=== PATIENT | male | born 1980 | race African-American/Black ===

== ENCOUNTER 2016-07-31 11:24 | Observation (INO) | payer OTHER ==
[2016-07-30 13:02] VITALS: Ht 177.8 cm; Wt 91.0 kg
[2016-07-31] VITALS (19 sets, daily range): BP systolic 94–143; BP diastolic 37–81; PULSE 61–102; RESP 13–20
[~2016-07-31] VITALS: Ht 177.8 cm; Wt 91.0 kg
[2016-07-31] MEDS ORDERED: HYD25 PO (12:44)
[2016-07-31] MEDS ORDERED: LISI40TA9 PO (12:44)
--- NOTE | 2016-07-31 13:45 | HPN ---
Date/Time of Note Date/Time of Note DATE: 07/31/16 TIME: 13:44 Interval H&P Admission Note Pt. seen H&P reviewed: No system changes MISTY DEMARCO M.D. Jul 31, 2016 13:45
[2016-07-31] MEDS ORDERED: TRIAMCINOLONE ACET 40 MG/ML INJ ONE (13:52)
[2016-07-31] MEDS ORDERED: LIDOCAINE 1%/EPI 30 ML INJ ONE (13:52)
[2016-07-31] MEDS ORDERED: BUPIVACAINE 0.25%/EPI (SDV) 30 ML INJ ONE (13:52)
[2016-07-31] MEDS ORDERED: COCAINE 4% 4 ML TOP ONE (13:53)
[2016-07-31] MEDS ORDERED: CEFAZOLIN 1 GM INJ ONE (14:04)
[2016-07-31] MEDS ORDERED: EPHEDrine SULFATE 50 MG/5 ML SYG ONE (14:04)
[2016-07-31] MEDS ORDERED: PROPOFOL 20 ML ONE (14:04)
[2016-07-31] MEDS ORDERED: ROCURONIUM 50 MG INJ ONE (14:04)
[2016-07-31] MEDS ORDERED: DEXAMETHASONE 4 MG/ML 1 ML INJ ONE ×2 (14:04→14:29)
[2016-07-31] MEDS ORDERED: ONDANSETRON 4 MG INJ ONE (14:05)
[2016-07-31] MEDS ORDERED: hydrALAzine 20 MG INJ IV PRN (15:00)
[2016-07-31] MEDS ORDERED: HYDROmorphONE (0.2 MG/ML) 10ML SYG IV PRN ×2 (15:00)
[2016-07-31] MEDS ORDERED: EPHEDrine SULFATE 50 MG/5 ML SYG IV PRN (15:00)
[2016-07-31] MEDS ORDERED: MIDAZOLAM 1 MG/ML 2 ML INJ IV PRN (15:00)
[2016-07-31] MEDS ORDERED: MEPERIDINE 25 MG INJ IV PRN (15:00)
[2016-07-31] MEDS ORDERED: ONDANSETRON 4 MG INJ IV PRN (15:00)
[2016-07-31] MEDS ORDERED: DIPHENHYDRAMINE 50 MG INJ IV PRN (15:00)
[2016-07-31] MEDS ORDERED: GLYCOPYRROLATE 0.4 MG INJ ONE (15:17)
[2016-07-31] MEDS ORDERED: NEOSTIGMINE 3 MG/3 ML SYRINGE ONE (15:17)
[2016-07-31] MEDS ORDERED: BACITRACIN/POLYMYXIN 28.35 GM OINT TOP ONE (15:27)
[2016-07-31] MEDS: HYDROmorphONE (0.2 MG/ML) 10ML SYG IV PRN ×2 (16:41→16:47)
[2016-07-31] MEDS ORDERED: VITAMIN A & D 5 GM OINT PACKET TOP ONE (17:57)
[2016-07-31] MEDS: IBUPROFEN 800 MG TAB PO PRN ×2 (17:59→21:32)
--- NOTE | 2016-07-31 20:38 | OPR ---
DATE OF OPERATION: 07/31/2016 SURGEON: Amari Poole MD PREOPERATIVE DIAGNOSES: 1. Obstructive sleep apnea. 2. Septal deviation. 3. Nasal turbinate tissue hypertrophy. 4. Tonsil tissue hypertrophy. 5. Chronic nasal obstruction. POSTOPERATIVE DIAGNOSES: 1. Obstructive sleep apnea. 2. Septal deviation. 3. Nasal turbinate tissue hypertrophy. 4. Tonsil tissue hypertrophy. 5. Chronic nasal obstruction. SURGICAL PROCEDURES PERFORMED: 1. Uvulopalatopharyngoplasty procedure. 2. Septoplasty procedure using submucosal resection technique. 3. Bilateral laser turbinoplasty procedure using a 532 nanometer laser using a submucosal resection technique. ESTIMATED BLOOD LOSS: Approximately 100 mL. COMPLICATIONS: No complications. SPECIMENS SENT TO LABORATORY: The septal cartilage and bone along with left and right tonsils with bilateral portions of the pharynx and uvula. There are also portions of the palate sent with the uv jovanny. ANESTHETIC USED: General anesthesia with orotracheal tube intubation. The patient also received 10 mL of 1% lidocaine with epinephrine 1:100,000, also Marcaine 0.25% with epinephrine 1:200,000 used approximately 17 mL. The patient also received topical cocaine 4% using 4 mL as well as 40 mg of Ke nalog applied to the base of the tongue using 1 mL. The patient was also given Decadron and Ancef b efore the case was begun. FINDINGS DURING PROCEDURE: Right anterior nasal septal deviation with bilateral turbinate tissue hy pertrophy. There are also papillomatous degenerative mucosal changes of the nasal cavity. The ana ent also found to have elongated uvula and enlarged tonsils bilaterally. No signs of malignancies, tumors present, bifid uvula, or a submucous cleft. INDICATIONS: Mr. 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 The patient has also been found to have nasal septal gianluca ation with turbinate tissue hypertrophy. The patient is currently scheduled for today's procedure, which will include a septoplasty procedure with bilateral laser turbinoplasty procedure. The patien t will also undergo a uvulopalatopharyngoplasty procedure with bilateral tonsillectomy procedure. T he risks, benefits, and alternatives have been explained thoroughly to Mr. Cleary. They include inf ection, bleeding, scar formation, possible damage to the lingual nerve which could result in tongue numbness. He also understands the risk of possible septal perforation as well as possible failure o f procedure. The patient also understands the risks of general and local anesthetic agents that lana l be used during this procedure and the possible risks of dental or gingival lacerations that can oc cur during the procedure. He signed the consent after his questions were answered. POSTOPERATIVE CONDITION: This patient left the operating room in good and satisfactory condition an d will be admitted for a 23-hour hold. PROCEDURE IN DETAIL: The patient was taken to the operating room, placed on the surgical table in s upine position, made comfortable by the anesthesiologist, Dr. Newton. The patient had EKG, saturati on monitoring, and blood pressure cuff applied. The patient was then given a mask inhalation agent and placed to sleep gently. The patient had a previously started IV in the preinduction area, which was infusing well. The patient was then successfully orotracheally intubated with orotracheal cuff ed tube without any complications. At this point, the tube was taped to the lower lip in the midlin e and the eyes were taped for protection. A brief time-out with patient identification and procedur e was entertained, and all were in agreement. At this point, wet towels were placed around the eyes and the split sheet in preparation for the procedure. The nose was then prepped with injections of 1% lidocaine with epinephrine 1:100,000 using 10 mL using a 25-gauge 1-1/2 inch needle. These inje ctions were given to the septum and inferior turbinates bilaterally. There was also injection on th e floor of the nose and in the nasal spine area. At this point, all personnel in the operating room were asked to place safety goggles on for their protection as the KTP 532 nm laser was then made re carlos at 8 call continuous power. Using a straight handpiece and a foot pedal, the laser was activat ed after it was placed in the submucosal space of the left inferior turbinate. In a posterior direc tion, the inferior turbinate was reduced in the submucosal space and then outfractured towards the m edial wall of the maxillary sinus to give greater patency of the nasal cavity. The right side was d one in a similar fashion and it too was reduced in size. After adequate reduction of the inferior t urbinate, the procedure was terminated. At this point, a septoplasty procedure was performed by mack ing a hemitransfixion incision in the interseptal margin with a #15 Bard-Shlomo stainless steel blad e. This incision was carried down through the mucosal lining down to the underlying perichondrium o f the nasal septum. A Isabela elevator was then used to elevate a mucoperichondrial flap on the left side of the nose with care not to tear or damage the flap. The hemitransfixion incision was then c ompleted with the #15 Bard-Shlomo sharp stainless steel blade to the right side. The Isabela elevato r was then advanced to the right side and elevated a mucoperichondrial flap as well. The deviated n kalyn septal cartilage was then removed with ____ with Jake forceps. After complete removal, th e septum was noted to swing back towards the midline. At this point, the hemitransfixion incision w as closed with a 4-0 Vicryl suture in simple interrupted fashion. Plication sutures were then place d to keep the flap in midline position and to prevent hematoma formation using a 4-0 Vicryl suture. This ended the septoplasty portion of the procedure as the table was then turned to the left, appro ximately 90 degrees before being relocked. At this point, the head of the table was extended to all ow access into the oral cavity. A McIvor mouth gag using a 4 right blade was then gently inserted i nto the oral cavity with care not to damage dental or gingival structures. McIvor mouth gag was the n opened and suspended from an overlying Acharya stand, as the head was supported. At this point, 2 re d Damian catheters were passed through the nasal cavity and retrieved from the oropharynx to help retract the soft palate. The palate was digitally palpated and not found to have a submucous cleft and, visually, there was no bifid uvula present. At this point, the left and right tonsils were fou nd to be slightly pedunculated, as they were injected in their lateral positions with Marcaine 0.25% with epinephrine 1:200,000 using a 23-gauge spinal needle. At this point, the left and right tonsi ls were then removed using a James dissector, as a tonsillar fossa was created. Sponge packing was p laced inside the tonsillar fossa bilaterally to tamponade bleeding points. At this point, electroca utery suction Bovie was then used to cauterize bleeding points in the tonsillar fossae bilaterally. Marcaine 0.25% with epinephrine 1:200,000 was injected into the tonsillar fossae for postop pain ma nagement and to diminish bleeding. At this point, a strip of the posterior pillar was then removed in order to close and repair the pharynx. The 4-0 Vicryl suture was then used in simple interrupted fashion. Uvula was then removed with a #15 Bard-Shlomo sharp stainless steel blade and the uvula w as repaired and closed the mucosa using the same 4-0 Vicryl suture in simple interrupted fashion. A t this point, copious amounts of normal saline solution with bacitracin added was then used to irrig ate the nasal cavity, hypopharynx, and oral cavity in preparation for extubation. The suction regine ter was then placed inside the esophagus and stomach to remove ingested tissue products and secretio ns. The patient's nasal cavity was then packed with bacitracin ointment and a moustache dressing ap plied. A nasal trumpet was then placed on the right side for extubation purposes. The patient was then extubated in the operating room after 40 mg of Kenalog was placed inside of the soft palate wit h the same 23-gauge spinal needle. The patient was then taken to recovery room where he will be adm itted and observed for 23 hours postop. Dictated By: AMARI AVILA/KUSUM Conf#: [id number] DID#: [id number]
[2016-07-31] MEDS: DEXAMETHASONE 4 MG/ML 1 ML INJ IV SCH (21:32)
[2016-08-01 00:22] VITALS: BP 121/59; RESP 18
[2016-08-01] MEDS: IBUPROFEN 800 MG TAB PO PRN ×3 (01:47→09:59)
[2016-08-01 06:02] VITALS: BP 118/55; RESP 20
[2016-08-01] MEDS: DEXAMETHASONE 4 MG/ML 1 ML INJ IV SCH (06:03)
[2016-08-01 07:00] VITALS: BP 124/58; RESP 18
[2016-08-01] MEDS ORDERED: LISINOPRIL 20 MG TAB PO SCH (09:00)
[2016-08-01] MEDS ORDERED: HYDROCHLOROTHIAZIDE 25 MG TAB PO SCH (09:00)
== END 2016-08-01 11:00 | disposition home or self-care (01) ==
LOC: SDS 11:24 → MS1 16:28
PROVIDERS: ADMIT Otolaryngology Otolaryngology/Facial Plastic Surgery; ATTEND Otolaryngology Otolaryngology/Facial Plastic Surgery
DX: G47.33 Obstructive sleep apnea (adult) (pediatric) (principal); J34.2 Deviated nasal septum; J34.3 Hypertrophy of nasal turbinates; J35.1 Hypertrophy of tonsils; J34.89 Other specified disorders of nose and nasal sinuses; I10 Essential (primary) hypertension; E66.01 Morbid (severe) obesity due to excess calories; Z68.28 Body mass index [BMI] 28.0-28.9, adult
CPT/HCPCS: 30140; 30520; 42145; 88300; 88304; 96374; J0690; J1100; J1170; J2405; J2710; J3010; J3301; Z7500; Z7512; Z7610; G0378